=== PATIENT | female | born 1990 | race Caucasian/White ===

== ENCOUNTER 2020-05-23 11:33 | Emergency (ER) | payer OTHER ==
[2020-05-23 11:40] VITALS: BP 121/70; PULSE 76; TEMP 97.8; BMI 28.1
--- NOTE | 2020-05-23 11:52 | PDOC ---
Suture Removal/Wound Check HPI - History of Present Illness Chief Complaint: Suture/Staple Removal(Here) Stated Complaint: STITCHES REMOVAL Time Seen by Provider: 05/23/20 11:40 History Source: Yes: Patient Treated at: [facility] Date of Last ED visit: 05/12/20 - Previous ED Treatment Type of procedure performed on last visit: Yes: Laceration Repair Tetanus Immunization: Yes: Up to Date Past History - Medical History Allergies/Adverse Reactions: Allergies Allergy/AdvReac Type Severity Reaction Status Date / Time No Known Allergies Allergy Verified 05/23/20 11:38 Home Medications: Ambulatory Orders Amoxicillin/Potassium Clav [Augmentin 875-125 Tablet] 1 each PO BID #14 tablet 05/12/20 COPD: No - Reproductive History Is Patient Now?: No - Psycho-Social/Smoking History Smoking History: Never smoked Have you smoked in the past 12 months: No Number of Cigarettes Smoked Daily: 3 - Substance Abuse Hx (Audit-C & DAST Scrn) How often the patient has a drink containing alcohol: Never Score: In Men: 4 or > Positive; In Women: 3 or > Positive: 0 Screen Result (Pos requires Nsg. Audit-10AR): Negative In the last yr the pt used illegal drug/Rx for NonMed reason: No Score: Yes response is considered Positive: 0 Screen Result (Positive result requires Nsg. DAST-10): Negative *Review of Systems - Review of Systems Constitutional: No: Fever Integumentary: No: Erythema *Physical Exam - Vital Signs Last Vital Signs Temp Pulse Resp BP Pulse Ox 97.8 F 76 16 121/70 100 05/23/20 11:38 05/23/20 11:38 05/23/20 11:38 05/23/20 11:38 05/23/20 11:38 - Physical Exam General Appearance: Yes: Appropriately Dressed. No: Apparent Distress HEENT: positive: Normal Voice Neck: positive: Supple Respiratory/Chest: negative: Respiratory Distress Extremity: positive: Other (well healing lac to posterior aspect of R thigh) Integumentary: positive: Dry, Warm Neurologic: positive: Fully Oriented, Alert, Normal Mood/Affect Medical Decision Making - Medical Decision Making 05/23/20 11:47 29 yo F, here for suture removed. Seen on 05/12 for multiple wounds 2/2 dog bite and had lac to posterior thigh sutured. Completed course of abx. No complaints at this time. 4 sutures removed to R thigh with no complications Discharge - Discharge Information Problems reviewed: Yes Clinical Impression/Diagnosis: Visit for suture removal Condition: Good Disposition: HOME - Follow up/Referral - Patient Discharge Instructions Patient Printed Discharge Instructions: DI for Suture Removal - Post Discharge Activity
== END 2020-05-23 11:53 | disposition home or self-care (01) ==
LOC: JERFT 11:33
DX: Z48.02 Encounter for removal of sutures (principal)
CPT/HCPCS: 99281-25